=== PATIENT | female | born 1990 | race Caucasian/White ===

== ENCOUNTER 2019-08-05 22:51 | Emergency (ER) | payer OTHER, SELFPAY ==
[2019-08-05 22:53] VITALS: BP 135/80; PULSE 89; RESP 18; TEMP 36.6; O2SAT 97; BMI 22.7
[2019-08-05 23:05] VITALS: BP 135/80; PULSE 89; RESP 16; TEMP 36.6; O2SAT 97
[2019-08-05 23:25] LABS: RBC Urine None Seen (0-5/HPF)
[2019-08-05 23:38] LABS: Alanine Aminotransferase 9 IU/L (<35); Albumin 4.7 g/dL (3.5-5.0); Albumin Globulin Ratio 1.4 (1.0-2.8); Alkaline Phosphatase 61 U/L (38-126); Aspartate Aminotransferase 25 IU/L (14-36); BUN Creatinine Ratio 18.8 (6-22); Bilirubin Total 0.5 mg/dL (0.2-1.3); Blood Urea Nitrogen 15 mg/dL (7-17); Calcium 9.6 mg/dL (8.4-10.2); Carbon Dioxide 24 mmol/L (22-32); Chloride 103 mmol/L (98-107); Estimated Glomerular Filt Rate > 60.0 mL/min (>60); Globulin 3.3 g/dL (1.7-4.1); Glucose 105 mg/dL (70-100); HEMOLYSIS < 15 (0-50); Lipase 108 U/L (23-300); Potassium 3.7 mmol/L (3.4-5.1); Sodium 139 mmol/L (137-145)
[2019-08-05 23:39] LABS: Add Manual Diff / Slide Review NO; Basophils Absolute Auto 100 /uL (0-100); Basophils Percent Auto 0.6 % (0-2); Eosinophils Absolute Auto 100 /uL (0-450); Eosinophils Percent Auto 0.6 % (2-4); Hematocrit 41.4 % (36-46); Lymphocytes Absolute Auto 1700 /uL (1100-4500); Lymphocytes Percent Auto 13.9 % (25-40); Mean Corpuscular HGB Conc 33.9 % (30-36); Mean Corpuscular Hemoglobin 29.9 PG (26-34); Mean Corpuscular Volume 88.3 fL (80-100); Monocytes Absolute Auto 800 /uL (0-900); Monocytes Percent Auto 6.8 % (3-14); Neutrophils Absolute Auto 9300 /uL (1500-7000); Neutrophils Percent Auto 78.1 % (50-75); Platelet Count 255 X10^3/uL (150-400); Red Blood Cell Count 4.68 X10^6/uL (4.0-5.2); Red Cell Distribution Width 12.2 % (11.6-14.8); White Blood Cell Count 11.9 X10^3/uL (4.5-11.0)
[2019-08-05 23:47] LABS: Squamous Epithelial Cell Urine 0-1 /HPF (0-5/HPF); WBC Urine 0-1/HPF (0-5/HPF)
[2019-08-05 23:48] LABS: Bacteria Urine Few (2-10); Culture Indicated Urine Specimen Cultured
--- NOTE | 2019-08-05 23:57 | ED.ABDPAIN ---
HPI - Abdominal Pain General Chief Complaint: Abdominal Pain Stated Complaint: abdominal pain Time Seen by Provider: 08/05/19 23:57 Source: patient Mode of arrival: Family Vehicle Limitations: no limitations History of Present Illness HPI narrative: The patient presents with right lower quadrant pain, onset 3 hours ago. Pain onset was sudden. She has pain radiating to her back. She has no associated nausea vomiting. She denies diarrhea. She has no dysuria or hematuria. She has a history of ovarian cysts. She completed her menstrual cycle about 1 week ago. She has no vaginal discharge or vaginal bleeding. She is not experiencing fever. She was able eat dinner this evening without issue. She has no prior history of ovarian or pelvic surgeries. She has no chronic illnesses, she has no prescribed medications. Related Data Previous Rx's Medication Instructions Recorded tramadol 50 mg PO Q6-8H PRN #14 tab 08/06/19 Allergies Allergy/AdvReac Type Severity Reaction Status Date / Time strawberry Allergy Verified 08/05/19 22:57 Review of Systems Review of Systems ROS Unobtainable: All systems reviewed & are unremarkable except as noted in HPI and below Constitutional Constitutional: Denies chills, Denies fever(s), Denies lethargy and Denies weakness Cardiovascular Cardiovascular: Denies chest pain, Denies palpitations, Denies dyspnea and Denies orthopnea Respiratory Respiratory: Denies cough, Denies dyspnea and Denies wheezing Gastrointestinal Gastrointestinal: Reports as per HPI, Reports abdominal pain, Denies change in bowel habits, Denies diarrhea, Denies nausea and Denies vomiting Genitourinary Genitourinary: Denies hematuria, Denies dysuria, Reports pelvic pain, Denies flank pain, Denies urinary urgency and Denies vaginal discharge Musculoskeletal Musculoskeletal: Reports back pain, Denies muscle weakness, Denies numbness and Denies tingling Integumentary/Breasts Skin/Breast: Denies pruritus, Denies erythema, Denies rash and Denies wounds Neurologic Neurologic: Denies numbness, Denies tingling and Denies weakness Endocrine Endocrine: Denies palpitations Allergic/Immunologic Allergic/Immunologic: Denies wheezing Patient History Medical History (Updated 08/06/19 @ 02:39 by Joey Jim MD) Ovarian cyst (Acute) Surgical History (Updated 08/06/19 @ 00:07 by Joey Jim MD) No significant past surgical history (Acute) Social History Smoking Status: Never smoker Smoking Status: Never smoker alcohol intake frequency: 0-2 drinks per day Substance Use Type: does not use Exam Initial Vital Signs Initial Vital Signs: Vital Signs Temperature 97.8 F 08/05/19 22:53 Pulse Rate 89 08/05/19 22:53 Respiratory Rate 18 08/05/19 22:53 Blood Pressure 135/80 08/05/19 22:53 Pulse Oximetry 97 08/05/19 22:53 Const General: cooperative and well developed Nutritional Appearance: well nourished [facility] Head: normocephalic and atraumatic Mouth: moist mucous membranes Throat: posterior oropharynx normal Resp Effort & Inspection: normal respiratory effort and able to speak in complete sentences Auscultation: clear to auscultation bilaterally, no rales, no rhonchi and no wheezes Cardio Rate: regular rate Rhythm: regular rhythm Heart Sounds: S1 normal, no click, no gallops, no murmurs and no rubs Pulses: normal peripheral pulses GI Inspection: non-distended Palpation: soft, no hepatosplenomegaly and No pulsatile mass Auscultation: normal bowel sounds Other: Right lower quadrant tenderness with guarding and rebound. Positive heel tap. Skin General: no rashes or lesions noted Neuro General: alert, oriented x3 and no focal motor deficits Speech: speech normal Course Course Course Narrative: The patient still has right lower quadrant tenderness prior to discharge, but her pain has improved significantly after receiving IV Toradol. Ultrasound reveals a 4.2 cm hemorrhagic cyst versus endometrioma. She will be sent home with Motrin and tramadol for pain, she is advised to recheck with her doctor. She will be advised to return if she develops fever or increased pain. Orders Ordered: ED Orders 08/05/19 21:31 Urine Culture Stat Urine Microscopic Stat 08/05/19 23:08 Complete Blood Count AUTO DIFF Stat Comprehensive Metabolic Panel Stat Lipase Stat 08/06/19 00:04 US pelvic complete Stat Discontinued Medications Ketorolac Tromethamine (Toradol) 30 mg IV NOW ONE Stop: 08/06/19 00:05 Last Admin: 08/06/19 00:19 Dose: 30 mg Documented by: [email or web address] Vital Signs Vital signs: Vital Signs - 8 hr 08/05/19 22:53 08/05/19 23:05 08/06/19 00:26 Temperature 97.8 F 97.8 F Pulse Rate 89 89 Respiratory Rate 18 16 Blood Pressure 135/80 Blood Pressure [Left Arm] 135/80 135/80 Pulse Oximetry 97 97 08/06/19 01:30 Temperature Pulse Rate 77 Respiratory Rate 14 Blood Pressure Blood Pressure [Left Arm] 130/92 H Pulse Oximetry 100 MDM - Abdominal Pain Lab Data Result diagrams: 08/05/19 23:08 08/05/19 23:08 Labs: Lab Results 08/05/19 08/05/19 08/05/19 Range/Units 21:31 23:08 23:08 WBC 11.9 H (4.5-11.0) X10^3/uL RBC 4.68 (4.0-5.2) X10^6/uL Hgb 14.0 (12.0-16.0) g/dL Hct 41.4 (36-46) % MCV 88.3 (80-100) fL MCH 29.9 (26-34) PG MCHC 33.9 (30-36) % RDW 12.2 (11.6-14.8) % Plt Count 255 (150-400) X10^3/uL Neut % (Auto) 78.1 H (50-75) % Lymph % (Auto) 13.9 L (25-40) % [place] % (Auto) 6.8 (3-14) % Eos % (Auto) 0.6 L (2-4) % Baso % (Auto) 0.6 (0-2) % Neut # (Auto) 9300 H (0240-7433) /uL Lymph # (Auto) 1700 (2373-9172) /uL [place] # (Auto) 800 (0-900) /uL Eos # (Auto) 100 (0-450) /uL Baso # (Auto) 100 (0-100) /uL Sodium 139 (137-145) mmol/L Potassium 3.7 (3.4-5.1) mmol/L Chloride 103 (98-107) mmol/L Carbon Dioxide 24 (22-32) mmol/L BUN 15 (7-17) mg/dL Creatinine 0.80 (0.52-1.04) mg/dL Estimated GFR > 60.0 (>60) mL/min BUN/Creatinine Ratio 18.8 (6-22) Glucose 105 H (70-100) mg/dL Calcium 9.6 (8.4-10.2) mg/dL Total Bilirubin 0.5 (0.2-1.3) mg/dL AST 25 (14-36) IU/L ALT 9 (<35) IU/L Alkaline Phosphatase 61 (38-126) U/L Total Protein 8.0 (6.3-8.2) g/dL Albumin 4.7 (3.5-5.0) g/dL Globulin 3.3 (1.7-4.1) g/dL Albumin/Globulin Ratio 1.4 (1.0-2.8) Lipase 108 (23-300) U/L Urine RBC None seen (0-5/HPF) Urine WBC 0-1/hpf (0-5/HPF) Ur Squamous Epith Cells 0-1 /hpf (0-5/HPF) Urine Bacteria Few (2-10) H (None) Ur Culture Indicated? Specimen cultured Point of care testing: Point of Care Testing Test Results Negative Urine Dip Bedside Urine Glucose Negative Bedside Urine Bilirubin - Negative Bedside Urine Ketone +/- 5 Urine Specific [place] 1.015 Bedside Urine Occult Blood - Negative Bedside Urine pH 6.5 Bedside Urine Protein - Negative Bedside Urine Urobilinogen - Negative Bedside Urine Nitrite - Negative Bedside Urine Leukocytes + 70 Esterase Imaging Data Pelvic ultrasound: Radiologist's Impression: 4.2 cm hemorrhagic right ovarian cyst, versus endometrioma. Discharge Plan Departure Patient Disposition: Home Clinical Impression: Ovarian cyst Qualifiers: Laterality: right Qualified Code(s): N83.201 - Unspecified ovarian cyst, right side Discharge Date/Time: 08/06/19 02:58 Instructions: DI for Ovarian Cyst Activity Restrictions/Additional Instructions: Motrin every 6 hours as needed for pain. Tramadol every 6 hours for increased pain. Follow-up with your doctor this week Return to this ER if increasing pain or fever. Prescriptions: New tramadol 50 mg tablet 50 mg PO Q6-8H PRN (Reason: pain) Qty: 14 RF: 0 Stand Alone Forms: Work Release Note
--- NOTE | 2019-08-06 00:04 | DI.US.S_ITS ---
PROCEDURE: US PELVIC COMPLETE INDICATIONS: RIGHT PELVIC PAIN TECHNIQUE: Real-time scanning was performed of the pelvic organs, with image documentation. Additional endovaginal scanning was necessary due to incomplete visualization of the adnexal and endometrial structures by transabdominal scanning. COMPARISON: None. FINDINGS: Transabdominal scanning: Limited scanning through the kidneys shows no hydronephrosis. No pathologic free abdominal or pelvic fluid. Endovaginal scanning: Uterus: Uterus is normal in size at 2.9 x 4.5 x 6.2 cm. The endometrium measures 1.7 mm in combined thickness. Ovaries: The right ovary measures 3.6 x 5.2 x 4.8 cm and contains a moderately complex 4.2 x 3.0 x 4.1 cm cystic component containing low level internal echoes, likely hemorrhagic in origin IMPRESSION: Moderately complex right ovarian cyst, measuring up to 4.2 cm. Followup pelvic ultrasound in 6-8 weeks is recommended to assess for interval resolution. Hemorrhagic ovarian cyst is the most likely cause but followup is definitely recommended to confirm resolution. Dictated by: Kris Ortiz M.D. on 08/06/2019 at 8:11 Approved by: Kris Ortiz M.D. on 08/06/2019 at 8:29
[2019-08-06] MEDS: KETOROLAC 60 MG/2 ML VIAL 30 MG IV (00:19)
[2019-08-06 00:26] VITALS: BP 135/80
[2019-08-06 01:30] VITALS: BP 130/92; PULSE 77; RESP 14; O2SAT 100
== END 2019-08-06 02:58 | disposition home or self-care (01) ==
PROVIDERS: Emergency Provider Emergency Medicine
DX: N83.201 Unspecified ovarian cyst, right side (principal)
CPT/HCPCS: 76830; 76856; 80053; 81003; 81015; 81025; 83690; 85025; 87086; 96374; 99284; J1885

== ENCOUNTER 2019-09-06 10:13 | Emergency (ER) | payer OTHER, SELFPAY ==
[2019-09-06 10:15] VITALS: BP 136/76; PULSE 78; RESP 12; O2SAT 99
[2019-09-06 10:42] VITALS: BP 136/76; PULSE 71; RESP 18; TEMP 36.8; O2SAT 96
--- NOTE | 2019-09-06 10:43 | PC.NURSE ---
hx of endometriosis.
--- NOTE | 2019-09-06 10:44 | ED.GENADULT ---
HPI - General Adult General Chief complaint: Abdominal Pain Stated complaint: rt abdomen pain Time Seen by Provider: 09/06/19 10:33 Source: patient Mode of arrival: Ambulatory Limitations: no limitations History of Present Illness HPI narrative: 29-year-old female here for evaluation of right-sided pelvic pain. She states she knows that she has a right-sided ovarian cyst as potentially even a hemorrhagic cyst or an endometrioma. She was scheduled for surgery however this had to be postponed. States that this morning started having increasing right-sided pelvic pain. Has not take anything for symptoms. States she was told to come to the emergency department if her pain returned by her OB provider. Related Data Previous Rx's Medication Instructions Recorded tramadol 50 mg PO Q6-8H PRN #14 tab 08/06/19 Allergies Allergy/AdvReac Type Severity Reaction Status Date / Time strawberry Allergy Verified 08/05/19 22:57 Review of Systems Constitutional Constitutional: Denies fever(s) Cardiovascular Cardiovascular: Denies chest pain and Denies dyspnea Respiratory Respiratory: Denies dyspnea Gastrointestinal Gastrointestinal: Reports abdominal pain, Denies nausea and Denies vomiting Genitourinary Genitourinary: Denies dysuria and Denies vaginal discharge Musculoskeletal Musculoskeletal: Denies myalgias and Denies arthralgias Integumentary/Breasts Skin/Breast: Denies rash Hematologic/Lymphatic Hematologic/Lymphatic: Denies easy bleeding and Denies easy bruising Patient History Medical History Ovarian cyst (Acute) Surgical History (Updated 08/06/19 @ 00:07 by Joey Jim MD) No significant past surgical history (Acute) Social History Smoking Status: Never smoker Smoking Status: Never smoker alcohol intake frequency: 0-2 drinks per day Substance Use Type: does not use Exam Initial Vital Signs Initial Vital Signs: Vital Signs Pulse Rate 78 09/06/19 10:15 Respiratory Rate 12 09/06/19 10:15 Blood Pressure 136/76 09/06/19 10:15 Pulse Oximetry 99 09/06/19 10:15 Const General: cooperative and comfortable Limitations: mental status not altered HENMT Head: normal to inspection and normocephalic Resp Effort & Inspection: normal respiratory effort Auscultation: clear to auscultation bilaterally Cardio Rate: regular rate Rhythm: regular rhythm GI Inspection: non-distended Palpation: soft, No firm and No tender Other: Tender right adnexa Skin Lesions: no lesions Rashes: no rashes Neuro General: alert and awake Extrem General: normal to inspection and capillary refill normal Course Orders Ordered: ED Orders 09/06/19 10:25 Urine Culture Stat Urine Microscopic Stat 09/06/19 10:43 US pelvic complete Stat Vital Signs Vital signs: Vital Signs - 8 hr 09/06/19 10:15 09/06/19 10:42 Temperature 98.2 F Pulse Rate 78 71 Respiratory Rate 12 18 Blood Pressure 136/76 Blood Pressure [Right Arm] 136/76 Pulse Oximetry 99 96 Medical Decision Making Lab Data Labs: Lab Results 09/06/19 Range/Units 10:25 Urine RBC 0-1/hpf (0-5/HPF) Urine WBC 5-10/hpf H (0-5/HPF) Ur Squamous Epith Cells 0-1 /hpf (0-5/HPF) Urine Bacteria Few (2-10) H (None) Ur Culture Indicated? Specimen cultured Point of Care Testing Test Results Negative Urine Dip Bedside Urine Glucose Negative Bedside Urine Bilirubin - Negative Bedside Urine Ketone - Negative Urine Specific [place] 1.015 Bedside Urine Occult Blood - Negative Bedside Urine pH 7.0 Bedside Urine Protein - Negative Bedside Urine Urobilinogen - Negative Bedside Urine Nitrite - Negative Bedside Urine Leukocytes ++ 125 Esterase Point of care testing: Point of Care Testing Test Results Negative Urine Dip Bedside Urine Glucose Negative Bedside Urine Bilirubin - Negative Bedside Urine Ketone - Negative Urine Specific [place] 1.015 Bedside Urine Occult Blood - Negative Bedside Urine pH 7.0 Bedside Urine Protein - Negative Bedside Urine Urobilinogen - Negative Bedside Urine Nitrite - Negative Bedside Urine Leukocytes ++ 125 Esterase Imaging Data US - [employer]: Radiologist's Impression: [address] [id number] Ultrasound Report Signed Patient: Emily Singh [facility]#: [id number] : 1990Acct:[id number] Age/Sex: 29 / FDate of Service: 09/06/19 Loc: ED Accession Number: [id number] Procedure: US pelvic complete Ordering Provider: Parth Holland D.O. PROCEDURE: US PELVIC COMPLETE INDICATIONS: RIGHT SIDE ANEXAL PAIN. EVAL FOR OVARY PATHOLOGY TECHNIQUE: Real-time scanning was performed of the pelvic organs, with image documentation. Additional endovaginal scanning was necessary due to incomplete visualization of the adnexal and endometrial structures by transabdominal scanning. COMPARISON: [facility], , PELVIC COMPLETE, 08/06/2019, 0:45. FINDINGS: Transabdominal scanning: Limited scanning through the kidneys shows no hydronephrosis. No pathologic free abdominal or pelvic fluid. Endovaginal scanning: Uterus: Uterus is normal in size at 5.6 x 3.1 x 4.6 cm. The endometrium measures 3 mm in combined thickness. No focal myometrial lesions are evident. Ovaries: The right ovary is enlarged and measures 4.7 x 4.0 x 4.2 cm. There is a homogeneous echogenic structure identified within the right ovary that measures 3.1 x 2.3 x 3.5 cm (previously measuring 4.2 x 3.0 x 4.1 cm. Increased through-transmission is identified. There is no internal vascularity. No additional lesions are evident. Small follicles on the right ovary are present. There is blood flow demonstrated to the right ovary, which demonstrates a normal arterial Doppler waveform. The left ovary is within normal limits and measures 2.8 x 2.4 x 1.9 cm. Other: A trace amount of free fluid is seen within the pelvis, likely physiologic. IMPRESSION: 1. Mild interval decrease in size of the cystic structure of the right ovary, most likely representing an endometrioma versus a hemorrhagic ovarian. Followup imaging in 2-3 months is recommended. 2. Unremarkable uterus and left ovary. Dictated by: Eyad Deutsch M.D. on 09/06/2019 at 11:19 Approved by: Eyad Deutsch M.D. on 09/06/2019 at 11:23 [facility] Narrative Medical decision making narrative: Nontoxic, her pain is right adnexa and she states that is exactly the same pain as she had before when she was diagnosed with the cyst. Ultrasound shows cyst however an unremarkable right ovary. Will hold on further workup for now. Patient was given return precautions and follow-up instructions. She expressed understanding and agreement. Discharge Plan Departure Patient Disposition: Home Clinical Impression: Ovarian cyst Qualifiers: Laterality: right Qualified Code(s): N83.201 - Unspecified ovarian cyst, right side Instructions: DI for Ovarian Cyst Activity Restrictions/Additional Instructions: You can take Tylenol and/or ibuprofen for any discomfort. Keep all of your scheduled medical appointments. Return to the emergency department for any new or worsening symptoms Prescriptions: No Action tramadol 50 mg tablet 50 mg PO Q6-8H PRN (Reason: pain) Qty: 14 RF: 0 Referrals: Duyen Engle ARNP [Primary Care Provider] -
[2019-09-06 11:35] LABS: Bacteria Urine Few (2-10); Culture Indicated Urine Specimen Cultured; RBC Urine 0-1/HPF (0-5/HPF); Squamous Epithelial Cell Urine 0-1 /HPF (0-5/HPF); WBC Urine 5-10/HPF (0-5/HPF)
[2019-09-06 13:40] VITALS: BP 117/72; PULSE 80; RESP 16; O2SAT 96
== END 2019-09-06 13:40 | disposition home or self-care (01) ==
PROVIDERS: Emergency Provider Emergency Medicine; PCP Nurse Practitioner Family
DX: N83.201 Unspecified ovarian cyst, right side (principal)
CPT/HCPCS: 76830; 76856; 81003; 81015; 81025; 87077; 87086; 99283